=== PATIENT | male | born 1985 | race Caucasian/White ===

== ENCOUNTER 2016-12-24 22:42 | Emergency (ER) | payer OTHER ==
[2016-12-24 22:50] VITALS: BP 135/76; PULSE 71; RESP 16; TEMP 98.5
[2016-12-24] MEDS ORDERED: PROPARACAINE 0.5% OPHTH DROPS 15 ML BTL ONE (23:14)
--- NOTE | 2016-12-24 23:21 | ED ---
General Adult HPI - General Chief complaint: Eye Problems Stated complaint: Eye Problem Time Seen by Provider: 12/24/16 23:03 Source: patient, RN notes reviewed, old records reviewed Mode of arrival: ambulatory Limitations: no limitations - History of Present Illness Initial comments: This is a 4-year-old male to the ER for evaluation of eye pain and right eye pain. 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 Patient states he was unable simulate pain worse mucosas eye. Patient did try and evacuated I did have improvement will drive her to the emergency room. Patient denies any change in his vision. No other complaints - Related Data Home Medications Medication Instructions Recorded Confirmed No Known Home Medications [No 12/24/16 12/24/16 Known Home Medications] Allergies Allergy/AdvReac Type Severity Reaction Status Date / Time No Known Allergies Allergy Verified 12/24/16 22:59 Review of Systems ROS Statement: Those systems with pertinent positive or pertinent negative responses have been documented in the HPI. ROS Other: All systems not noted in ROS Statement are negative. Past Medical History Past Medical History: No Reported History History of Any Multi-Drug Resistant Organisms: None Reported Past Surgical History: No Surgical Hx Reported Past Psychological History: No Psychological Hx Reported Smoking Status: Current every day smoker Past Alcohol Use History: Occasional Past Drug Use History: Marijuana General Exam - General Exam Comments Initial Comments: Abrasion right eye under slit-lamp examination, no foreign body found in either looking under both eyelids or on surface of the eye Limitations: no limitations General appearance: alert, in no apparent distress Head exam: Present: atraumatic, normocephalic, normal inspection Eye exam: Present: normal appearance, PERRL, EOMI. Absent: scleral icterus, conjunctival injection, periorbital swelling ENT exam: Present: normal exam, mucous membranes moist Neck exam: Present: normal inspection. Absent: tenderness, meningismus, lymphadenopathy Respiratory exam: Present: normal lung sounds bilaterally. Absent: respiratory distress, wheezes, rales, rhonchi, stridor Cardiovascular Exam: Present: regular rate, normal rhythm, normal heart sounds. Absent: systolic murmur, diastolic murmur, rubs, gallop, clicks GI/Abdominal exam: Present: soft, normal bowel sounds. Absent: distended, tenderness, guarding, rebound, rigid Extremities exam: Present: normal inspection, full ROM, normal capillary refill. Absent: tenderness, pedal edema, joint swelling, calf tenderness Back exam: Present: normal inspection Neurological exam: Present: alert, oriented X3, CN II-XII intact Psychiatric exam: Present: normal affect, normal mood Skin exam: Present: warm, dry, intact, normal color. Absent: rash Course Vital Signs 12/24/16 22:47 Temperature 98.5 F Pulse Rate 71 Respiratory 16 Rate Blood Pressure 135/76 O2 Sat by Pulse 97 Oximetry - Reevaluation(s) Reevaluation #1: 12/24/16 23:31 Patient is pain relief with proparacaine Medical Decision Making - Medical Decision Making 31 male the ER with right eye foreign body which appears to resolve. Corneal abrasion. Patient given antibiotics here in the ER which he is refusing, patient states he has antibiotic at home or what actually on him in his coat and he will continue those on an outpatient basis Disposition Clinical Impression: Corneal abrasion Disposition: HOME SELF-CARE Condition: Good Instructions: Corneal Abrasion (ED) Referrals: None,Stated [Primary Care Provider] - 1-2 days Dilan Small MD [STAFF PHYSICIAN] - 1-2 days
== END 2016-12-24 23:37 | disposition home or self-care (01) ==
LOC: EC 22:42
DX: S05.01XA Injury of conjunctiva and corneal abrasion without foreign body, right eye, initial encounter (principal); F17.200 Nicotine dependence, unspecified, uncomplicated; X58.XXXA Exposure to other specified factors, initial encounter
CPT/HCPCS: 99283

== ENCOUNTER 2019-11-27 14:45 | Emergency (ER) | payer OTHER ==
[2019-11-27 14:52] VITALS: BP 127/86; PULSE 96; RESP 18; TEMP 98.7
[2019-11-27] MEDS ORDERED: LIDOCAINE/EPINEPHR/TETRACAINE 5 ML BOTTLE TOPICAL ONE (15:10)
--- NOTE | 2019-11-27 15:15 | ED ---
ENT HPI - General Chief complaint: ENT Stated complaint: Swollen Face/Nose Time Seen by Provider: 11/27/19 15:01 Source: patient Mode of arrival: ambulatory Limitations: no limitations - History of Present Illness Initial comments: Patient 34-year-old male presenting to emergency prompt a chief complaint of nose pain. Patient reports he has an infection on the left side of his nose. States he previously had this and believes it is a staph infection. Patient reports the swelling is better progress into the left side of the cheek. Patient states he is a smoker. He does report history of sinus infections. Denies any fevers, night sweats or chills. Denies any nausea vomiting diarrhea. - Related Data Home Medications Medication Instructions Recorded Confirmed Amoxicillin Unknown Dose 2 cap PO ONCE 11/27/19 11/27/19 Ibuprofen [Motrin Ib] 1,000 mg PO Q8H PRN 11/27/19 11/27/19 Previous Rx's Medication Instructions Recorded Doxycycline Monohydrate [Monodox] 100 mg PO Q12HR #14 cap 11/27/19 Allergies Allergy/AdvReac Type Severity Reaction Status Date / Time No Known Allergies Allergy Verified 11/27/19 15:14 Review of Systems ROS Statement: Those systems with pertinent positive or pertinent negative responses have been documented in the HPI. ROS Other: All systems not noted in ROS Statement are negative. Past Medical History Past Medical History: No Reported History History of Any Multi-Drug Resistant Organisms: None Reported Past Surgical History: No Surgical Hx Reported Past Psychological History: No Psychological Hx Reported Smoking Status: Current every day smoker Past Alcohol Use History: Occasional Past Drug Use History: Marijuana General Exam Limitations: no limitations General appearance: alert, in no apparent distress Head exam: Present: atraumatic, normocephalic, normal inspection Eye exam: Present: normal appearance, PERRL, EOMI Pupils: Present: normal accommodation ENT exam: Present: normal exam, normal oropharynx (No signs of periapical abscess in oral cavity.), mucous membranes moist, TM's normal bilaterally, normal external ear exam, other (There appears to be a small abscess in the intranasal cavity of the left nostril. Some overlying cellulitic skin changes and top of the nose.) Neck exam: Present: normal inspection, full ROM. Absent: tenderness Respiratory exam: Present: normal lung sounds bilaterally. Absent: respiratory distress, wheezes, rales Cardiovascular Exam: Present: regular rate, normal rhythm, normal heart sounds GI/Abdominal exam: Present: soft. Absent: distended Extremities exam: Present: normal inspection, full ROM, normal capillary refill. Absent: tenderness Back exam: Present: normal inspection, full ROM. Absent: tenderness, CVA tenderness (R), CVA tenderness (L) Neurological exam: Present: alert, oriented X3 Psychiatric exam: Present: normal affect, normal mood Skin exam: Present: warm, dry, intact, normal color Course Vital Signs 11/27/19 14:49 Temperature 98.7 F Pulse Rate 96 Respiratory 18 Rate Blood Pressure 127/86 O2 Sat by Pulse 100 Oximetry Medical Decision Making - Medical Decision Making Patient 34-year-old male presenting to the emergency department with chief complaint of an infection nose pain. On physical examination, patient does appear to have an intranasal abscess and is also causing some erythema top of the nose. He does have maxillary sinus tenderness. He is a smoker and he does feel at this could also be sinusitis. Incision and drainage was performed at this small abscess region. There could also be concurrent sinusitis. I also want to cover for MRSA. I'm going to start the patient on doxycycline. This will cover for both MRSA and sinusitis. I counseled the patient for smoking cessation for greater than 3 minutes. Strict return prescribed as were thoroughly discussed with patient is under standing agreeable. Case discussed with physician. Disposition Clinical Impression: Abscess Disposition: HOME SELF-CARE Condition: Stable Instructions (If sedation given, give patient instructions): Abscess (ED) Additional Instructions: Take prescribed medication as directed. Follow with the primary care physician. Return to emergency department if symptoms worsen. Is patient prescribed a controlled substance at d/c from ED?: No Referrals: None,Stated [Primary Care Provider] - 1-2 days Time of Disposition: 15:46
[2019-11-27] MEDS ORDERED: DOXYCYCLINE 100 MG CAP PO STA (15:46)
--- NOTE | 2019-11-28 12:20 | CDI ---
Dear Johnson Dominique PA-C> Please do addendum for Incision and drainage procedure note , required Thank you, Rachel Umaña, Brine Tank Separator Operator If you have any questions, please contact Manager Sterile Processing at [phone] [facility]
== END 2019-11-27 15:57 | disposition home or self-care (01) ==
LOC: EC 14:45
DX: J34.0 Abscess, furuncle and carbuncle of nose (principal); F17.200 Nicotine dependence, unspecified, uncomplicated; Z71.6 Tobacco abuse counseling
CPT/HCPCS: 10060; 99283; 99406

== ENCOUNTER 2020-09-20 11:37 | Emergency (ER) | payer OTHER ==
[2020-09-20 11:44] VITALS: BP 118/67; PULSE 100; RESP 17; TEMP 98.6
[2020-09-20] MEDS ORDERED: SULFAMETH-TMP DS STARTER PACK 2 TAB BTL PO STA (12:14)
[2020-09-20] MEDS ORDERED: KETOROLAC 15 MG/ML 1 ML VIAL IM STA (12:15)
--- NOTE | 2020-09-20 12:17 | ED ---
Skin/Abscess/FB HPI - General Chief complaint: Skin/Abscess/Foreign Body Stated complaint: Skin Issues/Thumb Swelling Time Seen by Provider: 09/20/20 11:50 Source: patient Mode of arrival: ambulatory Limitations: no limitations - History of Present Illness Initial comments: 35 year-old male patient presents to the emergency department for evaluation of left thumb swelling, left elbow "ingrown hair", and discoloration to the left lower leg. Patient is concerned he has "blood poisoning". He states he noticed the swelling to the areas a couple of days ago. Denies any known injury. Does admit to smoking "Ice", states it has been one week. Denies injecting any drugs. He denies any fever, chills, nausea, or vomiting. Denies any joint pain or swelling. Denies dizziness or weakness. Denies history of abscess. States he had "blood poisoning" as a child and is concerned he has this again. States last week he injured his right ramos. State he had a wound and swelling. Denies any significant pain to the area. He is ambulating without difficulty. - Related Data Home Medications Medication Instructions Recorded Confirmed Amoxicillin Unknown Dose 2 cap PO ONCE 11/27/19 11/27/19 Ibuprofen [Motrin Ib] 1,000 mg PO Q8H PRN 11/27/19 11/27/19 Previous Rx's Medication Instructions Recorded Doxycycline Monohydrate [Monodox] 100 mg PO Q12HR #14 cap 11/27/19 Ibuprofen [Motrin] 600 mg PO Q8HR PRN #30 tab 09/20/20 Sulfamethoxazole/Trimethoprim 1 each PO BID #20 tablet 09/20/20 [Bactrim DS 800-160 mg] Allergies Allergy/AdvReac Type Severity Reaction Status Date / Time shellfish derived [Shellfish] Allergy Anaphylaxis Verified 09/20/20 11:45 Review of Systems ROS Statement: Those systems with pertinent positive or pertinent negative responses have been documented in the HPI. ROS Other: All systems not noted in ROS Statement are negative. Past Medical History Past Medical History: No Reported History History of Any Multi-Drug Resistant Organisms: None Reported Past Surgical History: No Surgical Hx Reported Past Psychological History: Anxiety, Depression Smoking Status: Current every day smoker Past Alcohol Use History: Occasional Past Drug Use History: Marijuana General Exam Limitations: no limitations General appearance: alert, in no apparent distress, other (This is a well- developed, well-nourished adult male patient in no acute distress. Vital signs upon presentation are temperature 98.6F, pulse 100, respirations 17, blood pressure 118/67, pulse ox 97% on room air.) ENT exam: Present: normal exam, normal oropharynx, mucous membranes moist Respiratory exam: Present: normal lung sounds bilaterally. Absent: respiratory distress, wheezes, rales, rhonchi, stridor Cardiovascular Exam: Present: regular rate, normal rhythm, normal heart sounds. Absent: systolic murmur, diastolic murmur, rubs, gallop, clicks GI/Abdominal exam: Present: soft, normal bowel sounds. Absent: distended, tenderness, guarding, rebound, rigid Extremities exam: Present: full ROM, normal capillary refill, other (There is pustule noted to the right thumb, mild surrounding redness, and erythema. Full range of motion intact. Small pustule, mild surrounding erytema to the left elbow. Left lower leg ecchymosis. Skin is warm and dry. Pedal pulse 2+. ). Absent: tenderness, pedal edema, joint swelling, calf tenderness Neurological exam: Present: alert, oriented X3, CN II-XII intact Psychiatric exam: Present: normal affect, normal mood Skin exam: Present: warm, dry, intact, normal color. Absent: rash Course Vital Signs 09/20/20 11:40 Temperature 98.6 F Pulse Rate 100 Respiratory 17 Rate Blood Pressure 118/67 O2 Sat by Pulse 97 Oximetry Medical Decision Making - Medical Decision Making 35-year-old male patient presents to the emergency department today for evaluation of infection to his right thumb, left elbow, left lower leg. Physical examination did reveal small pustule to the right thumb and left elbow. Mild surrounding erythema. Full range of motion intact. Joints are not swollen or hot. The left lower leg exhibits some ecchymosis. He did have injury to the proximal ramos felt this to be the source of the ecchymosis. He will be started on Bactrim instructed to apply warm compresses to the pustules. Instructed to follow up with his primary care physician for recheck in 1-2 days. Return parameters were discussed in detail. He verbalizes understanding and agrees with this plan. My attending is Dr. Parsons. Disposition Clinical Impression: Swelling of right thumb, Traumatic ecchymosis of left lower leg Disposition: HOME SELF-CARE Condition: Good Instructions (If sedation given, give patient instructions): Contusion in Adults (ED), Abscess (ED) Additional Instructions: Apply warm compresses to the right thumb and the left elbow. Take medications as directed. Complete antibiotic prescription in full. Return immediately if he develop any fever or vomiting. Return for any other new, worsening, or concerning symptoms. Prescriptions: Sulfamethoxazole/Trimethoprim [Bactrim DS 800-160 mg] 1 each PO BID #20 tablet Ibuprofen [Motrin] 600 mg PO Q8HR PRN #30 tab PRN Reason: Pain Is patient prescribed a controlled substance at d/c from ED?: No Referrals: None,Stated [Primary Care Provider] - 1-2 days Time of Disposition: 12:16
== END 2020-09-20 12:30 | disposition home or self-care (01) ==
LOC: EC 11:37
DX: S80.12XA Contusion of left lower leg, initial encounter (principal); R22.32 Localized swelling, mass and lump, left upper limb; F41.9 Anxiety disorder, unspecified; F32.9 Major depressive disorder, single episode, unspecified; F17.200 Nicotine dependence, unspecified, uncomplicated; F12.90 Cannabis use, unspecified, uncomplicated; Z91.013 Allergy to seafood; X58.XXXA Exposure to other specified factors, initial encounter
CPT/HCPCS: 99283; 96372; J1885

== ENCOUNTER 2020-11-21 11:06 | Emergency (ER) | payer OTHER ==
[2020-11-21] MEDS ORDERED: predniSONE 20 MG TAB PO STA (12:52)
[2020-11-21] MEDS ORDERED: HYDROcodone/APAP 5-325MG 1 EACH TAB PO STA (12:52)
--- NOTE | 2020-11-21 12:53 | ED ---
Skin/Abscess/FB HPI - General Chief complaint: Skin/Abscess/Foreign Body Stated complaint: Allergic Reaction Time Seen by Provider: 11/21/20 11:58 Source: patient, RN notes reviewed Mode of arrival: ambulatory Limitations: no limitations - History of Present Illness Initial comments: This is a well-appearing 35-year-old white male that presents to the emergency room with 1 week of rash to bilateral forearms and abdomen. Patient was exposed to poison sumac and has been using [id number] calamine lotion with no relief. He states that he has been itching and very uncomfortable and now it is draining clear liquid. He denies any fevers but states that he just cannot get comfortable. MD complaint: rash -: days(s) (7) Tetanus Up to Date: yes Location: generalized, LUE, RUE Severity scale (1-10): 2 Quality: constant Consistency: constant Improves with: none Worsens with: none Context: other (Exposed to poison sumac) Associated symptoms: denies other symptoms Treatments Prior to Arrival: other (Calamine lotion) - Related Data Home Medications Medication Instructions Recorded Confirmed Amoxicillin Unknown Dose 2 cap PO ONCE 11/27/19 11/27/19 Ibuprofen [Motrin Ib] 1,000 mg PO Q8H PRN 11/27/19 11/27/19 Previous Rx's Medication Instructions Recorded Doxycycline Monohydrate [Monodox] 100 mg PO Q12HR #14 cap 11/27/19 Ibuprofen [Motrin] 600 mg PO Q8HR PRN #30 tab 09/20/20 Sulfamethoxazole/Trimethoprim 1 each PO BID #20 tablet 09/20/20 [Bactrim DS 800-160 mg] Cephalexin [Keflex] 500 mg PO Q6HR 5 Days #20 cap 11/21/20 predniSONE 50 mg PO DAILY #5 tab 11/21/20 Allergies Allergy/AdvReac Type Severity Reaction Status Date / Time shellfish derived [Shellfish] Allergy Anaphylaxis Verified 11/21/20 11:20 Review of Systems ROS Statement: Those systems with pertinent positive or pertinent negative responses have been documented in the HPI. ROS Other: All systems not noted in ROS Statement are negative. Past Medical History Past Medical History: No Reported History History of Any Multi-Drug Resistant Organisms: None Reported Past Surgical History: No Surgical Hx Reported Past Psychological History: Anxiety, Depression Smoking Status: Current every day smoker Past Alcohol Use History: Occasional Past Drug Use History: Marijuana General Exam Limitations: no limitations General appearance: alert, in no apparent distress Head exam: Present: atraumatic, normocephalic, normal inspection Eye exam: Present: normal appearance, PERRL, EOMI. Absent: scleral icterus, conjunctival injection, periorbital swelling ENT exam: Present: normal exam, normal oropharynx, mucous membranes moist Neck exam: Present: normal inspection, full ROM. Absent: tenderness, meningismus, lymphadenopathy Respiratory exam: Present: normal lung sounds bilaterally. Absent: respiratory distress, wheezes, rales, rhonchi, stridor Cardiovascular Exam: Present: regular rate, normal rhythm, normal heart sounds. Absent: systolic murmur, diastolic murmur, rubs, gallop, clicks GI/Abdominal exam: Present: soft, normal bowel sounds. Absent: distended, tenderness, guarding, rebound, rigid Extremities exam: Present: normal inspection, full ROM, normal capillary refill Neurological exam: Present: alert, oriented X3, normal gait Psychiatric exam: Present: normal affect, normal mood Skin exam: Present: warm, dry, rash, vesicles (Bilateral forearms and right lower abdomen). Absent: cyanosis, diaphoretic Course Vital Signs 11/21/20 11/21/20 11:20 13:35 Temperature 98.8 F 98.7 F Pulse Rate 95 79 Respiratory 16 19 Rate Blood Pressure 121/82 126/79 O2 Sat by Pulse 100 98 Oximetry Medical Decision Making - Medical Decision Making Patient was exposed to poison sumac on Thursday, 1 week ago, has been using [id number] calamine lotion with no relief. The rash now has clear yellow drainage and is tender to touch. Patient will be placed on prednisone and Keflex and directed to follow up with his primary care doctor in 1 week. Case discussed with Dr. Snow Disposition Clinical Impression: Poison sumac, Contact dermatitis Disposition: HOME SELF-CARE Condition: Good Additional Instructions: Keep wounds covered and take medication as prescribed. Return to the emergency room with any new or worsening symptoms including fever or signs of infection. Prescriptions: Cephalexin [Keflex] 500 mg PO Q6HR 5 Days #20 cap predniSONE 50 mg PO DAILY #5 tab Is patient prescribed a controlled substance at d/c from ED?: No Referrals: None,Stated [Primary Care Provider] - 1-2 days Time of Disposition: 12:55
[2020-11-21] MEDS ORDERED: DIPH,PERTUS(ACELL)TETVAC-LF 0.5 ML VIAL IM ONE (12:54)
[2020-11-21] MEDS ORDERED: ACET/COD 300 MG/30 MG STARTER PACK 6 TAB BTL PO STA (13:06)
[2020-11-21 13:36] VITALS: BP 126/79; PULSE 79; RESP 19; TEMP 98.7
== END 2020-11-21 13:36 | disposition home or self-care (01) ==
LOC: EC 11:06
DX: L23.7 Allergic contact dermatitis due to plants, except food (principal); F41.9 Anxiety disorder, unspecified; F32.9 Major depressive disorder, single episode, unspecified; F17.200 Nicotine dependence, unspecified, uncomplicated; F12.90 Cannabis use, unspecified, uncomplicated
CPT/HCPCS: 99282; 90471; 90715; J7512

== ENCOUNTER 2020-11-24 16:15 | Emergency (ER) | payer OTHER ==
[2020-11-24 16:31] VITALS: TEMP 97.6
--- NOTE | 2020-11-24 17:00 | ED ---
General Adult HPI - General Chief complaint: Skin/Abscess/Foreign Body Stated complaint: revisit-possible infection Time Seen by Provider: 11/24/20 16:58 Source: patient Mode of arrival: ambulatory Limitations: no limitations - History of Present Illness Initial comments: Patient presents to the ED stating that he was exposed to poison [place]ac about a week and a half ago, and he is concerned that his wounds may be infected. Patient states that he had exposures to his bilateral arms and left-sided his abdomen. Patient was seen in the ED for these symptoms 3 days ago, and he was started on a course of Keflex and prednisone by the ED provider that saw him at that time. Patient states that he has been taking the Keflex and prednisone that he was prescribed, but he states that his symptoms persist. Patient is complaining of having pain to his areas of exposure, and he also states that he has felt "hot and cold" at times. Patient also states that he has felt nauseated at times. Patient states that he has been taking all of his medications as prescribed. Patient denies fever or chills, headache, chest pain or pressure, dyspnea, cough or cold symptoms, palpitations, dizziness, abdominal pain, vomiting, decreased urine output or urinary symptoms, or any other symptoms or complaints. - Related Data Home Medications Medication Instructions Recorded Confirmed Amoxicillin Unknown Dose 2 cap PO ONCE 11/27/19 11/27/19 Ibuprofen [Motrin Ib] 1,000 mg PO Q8H PRN 11/27/19 11/27/19 Previous Rx's Medication Instructions Recorded Doxycycline Monohydrate [Monodox] 100 mg PO Q12HR #14 cap 11/27/19 Ibuprofen [Motrin] 600 mg PO Q8HR PRN #30 tab 09/20/20 Sulfamethoxazole/Trimethoprim 1 each PO BID #20 tablet 09/20/20 [Bactrim DS 800-160 mg] Cephalexin [Keflex] 500 mg PO Q6HR 5 Days #20 cap 11/21/20 predniSONE 50 mg PO DAILY #5 tab 11/21/20 Hydrocortisone Cream 1 applic TOPICAL TID #28 gm 11/24/20 [Hydrocortisone 2.5% Cream] Allergies Allergy/AdvReac Type Severity Reaction Status Date / Time shellfish derived [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 ROS Other: All systems not noted in ROS Statement are negative. Past Medical History Past Medical History: No Reported History History of Any Multi-Drug Resistant Organisms: None Reported Past Surgical History: No Surgical Hx Reported Past Psychological History: Anxiety, Depression Smoking Status: Current every day smoker Past Alcohol Use History: Occasional Past Drug Use History: Marijuana General Exam Limitations: no limitations General appearance: alert, in no apparent distress Head exam: Present: atraumatic, normocephalic Eye exam: Present: normal appearance, EOMI ENT exam: Present: mucous membranes moist Neck exam: Present: other (Trachea is in midline) Respiratory exam: Present: normal lung sounds bilaterally. Absent: respiratory distress, wheezes, rales, rhonchi, stridor Cardiovascular Exam: Present: regular rate, normal rhythm, normal heart sounds, other (Normal radial pulses bilaterally) GI/Abdominal exam: Present: soft. Absent: distended, tenderness, guarding Extremities exam: Present: full ROM. Absent: pedal edema Neurological exam: Present: alert, oriented X3. Absent: motor sensory deficit Psychiatric exam: Present: anxious Skin exam: Present: warm, dry, other (Dry, scaly, erythematous rashes are noted to the patient's right forearm/upper arm, left forearm and left lower quadrant abdominal wall consistent with contact dermatitis) Course Vital Signs 11/24/20 11/24/20 16:27 18:43 Temperature 97.6 F Pulse Rate 51 L 55 L Respiratory 20 16 Rate Blood Pressure 138/85 116/67 O2 Sat by Pulse 100 100 Oximetry - Reevaluation(s) Reevaluation #1: 11/24/20 17:59 Patient is now complaining of having severe generalized abdominal pain, which he now tells me he has been having for the past few days. Given this abdominal pain and the patient's leukocytosis, will obtain a CT abdomen/pelvis with IV contrast to further evaluate. 11/24/20 20:01 Patient is aware of his test results, and he feels comfortable being discharged home at this time. Patient was counseled about contact dermatitis and abdominal pain. Patient was instructed to complete the courses of prednisone and Keflex that he was prescribed in the ED 3 days ago. Patient was also provided with a prescription for topical hydrocortisone cream. Patient was clearly explained return and follow-up instructions, and he feels comfortable with this plan. Patient was instructed to follow up closely with his primary care provider. Medical Decision Making - Medical Decision Making I suspect that the patient's skin findings are likely secondary to contact dermatitis from poison [place] exposure. I do not think that the patient's rash is from an infectious etiology, nor do I think that his rash has become infected, but still the patient was instructed to complete the course of Keflex that he was prescribed in the ED 3 days ago. I am also uncertain of the et iology of the patient's abdominal pain, but he has a soft and nonsurgical abdominal exam, and his CT abdomen/pelvis with IV contrast is negative. I do not suspect an emergent medical or surgical condition at this time. Patient was also provided with a prescription for topical hydrocortisone cream to apply to his areas of contact dermatitis. Will discharge patient home at this time. - Lab Data Result diagrams: 11/24/20 17:38 11/24/20 17:38 Lab Results 11/24/20 11/24/20 11/24/20 Range/Units 17:38 17:38 17:38 WBC 17.5 H (3.8-10.6) k/uL RBC 5.42 (4.30-5.90) m/uL Hgb 16.3 (13.0-17.5) gm/dL Hct 49.9 (39.0-53.0) % MCV 92.1 (80.0-100.0) fL MCH 30.1 (25.0-35.0) pg MCHC 32.7 (31.0-37.0) g/dL RDW 12.6 (11.5-15.5) % Plt Count 359 (150-450) k/uL MPV 6.6 Neutrophils % 65 % Lymphocytes % 24 % Monocytes % 6 % Eosinophils % 4 % Basophils % 0 % Neutrophils # 11.3 H (1.3-7.7) k/uL Lymphocytes # 4.2 (1.0-4.8) k/uL Monocytes # 1.1 H (0-1.0) k/uL Eosinophils # 0.6 (0-0.7) k/uL Basophils # 0.1 (0-0.2) k/uL Sodium 137 (137-145) mmol/L Potassium 3.2 L (3.5-5.1) mmol/L Chloride 102 (98-107) mmol/L Carbon Dioxide 26 (22-30) mmol/L Anion Gap 9 mmol/L BUN 15 (9-20) mg/dL Creatinine 0.72 (0.66-1.25) mg/dL Est GFR (CKD-EPI)AfAm >90 (>60 ml/min/1.73 sqM) Est GFR (CKD-EPI)NonAf >90 (>60 ml/min/1.73 sqM) Glucose 86 (74-99) mg/dL Calcium 9.1 (8.4-10.2) mg/dL Total Bilirubin 0.3 (0.2-1.3) mg/dL AST 28 (17-59) U/L ALT 26 (4-49) U/L Alkaline Phosphatase 44 (38-126) U/L Total Protein 6.6 (6.3-8.2) g/dL Albumin 4.1 (3.5-5.0) g/dL Lipase 153 (23-300) U/L - Radiology Data Radiology results: report reviewed (CT abdomen/pelvis with IV contrast: Negative CT scan abdomen and pelvis. Normal appendix.) Disposition Clinical Impression: Contact dermatitis due to poison [place], Abdominal pain Disposition: HOME SELF-CARE Condition: Stable Instructions (If sedation given, give patient instructions): Contact Dermatitis (ED), Abdominal Pain (ED) Additional Instructions: Return to the ER immediately should you develop new or worsening pain, a fever, significant vomiting, feeling dizzy or faint, shortness of breath, or new or worsening symptoms. Follow up closely with your primary care provider. Prescriptions: Hydrocortisone Cream [Hydrocortisone 2.5% Cream] 1 applic TOPICAL TID #28 gm Is patient prescribed a controlled substance at d/c from ED?: No Referrals: None,Stated [Primary Care Provider] - 1-2 days Antoinette Julian MD [REFERRING] - 1-2 days Time of Disposition: 20:04
[2020-11-24] MEDS ORDERED: ONDANSETRON ODT 4 MG TAB PO STA (17:19)
[2020-11-24 17:42] LABS: Basophils # (A) 0.1 k/uL (0-0.2); Basophils % (A) 0 %; Eosinophils # (A) 0.6 k/uL (0-0.7); Eosinophils % (A) 4 %; HCT 49.9 % (39.0-53.0); HGB 16.3 gm/dL (13.0-17.5); Lymphocytes # (A) 4.2 k/uL (1.0-4.8); Lymphocytes % (A) 24 %; MCH 30.1 pg (25.0-35.0); MCHC 32.7 g/dL (31.0-37.0); MCV 92.1 fL (80.0-100.0); Mean Platelet Volume 6.6; Monocytes # (A) 1.1 k/uL (0-1.0); Monocytes % (A) 6 %; Neutrophils # (A) 11.3 k/uL (1.3-7.7); Neutrophils % (A) 65 %; Platelet Count 359 k/uL (150-450); RBC 5.42 m/uL (4.30-5.90); RDW 12.6 % (11.5-15.5); WBC 17.5 k/uL (3.8-10.6)
[2020-11-24 17:52] LABS: ALT 26 U/L (4-49); AST 28 U/L (17-59); African American GFR (CKD) >90 (>60 ml/min/1.73 sqM); Albumin 4.1 g/dL (3.5-5.0); Alkaline Phosphatase 44 U/L (38-126); Anion Gap 9 mmol/L; Blood Urea Nitrogen 15 mg/dL (9-20); Calcium 9.1 mg/dL (8.4-10.2); Carbon Dioxide 26 mmol/L (22-30); Chloride 102 mmol/L (98-107); Glucose 86 mg/dL (74-99); Non-African American GFR(CKD) >90 (>60 ml/min/1.73 sqM); Potassium 3.2 mmol/L (3.5-5.1); Sodium 137 mmol/L (137-145); Total Bilirubin 0.3 mg/dL (0.2-1.3); Total Protein 6.6 g/dL (6.3-8.2)
[2020-11-24] MEDS ORDERED: SODIUM CHLORIDE 0.9% 1,000 ML IV ONE (18:02)
[2020-11-24 18:43] VITALS: BP 116/67; PULSE 55; RESP 16
--- NOTE | 2020-11-24 18:49 | CT ---
EXAMINATION TYPE: CT abdomen pelvis w con DATE OF EXAM: 11/24/2020 COMPARISON: None HISTORY: Abdominal pain CT DLP: mGycm Automated exposure control for dose reduction was used. CONTRAST: The IV contrast was Isovue 100 mL. FINDINGS: Heart has normal size. Lung bases are clear. There is no pleural effusion. There is no pericardial ef fusion. Liver spleen stomach pancreas gallbladder appear intact. Bile ducts are nondilated. There is no adrenal mass. Kidneys show satisfactory contrast opacification. There is no hydronephrosis. There is no retroperitoneal adenopathy. Ureters are not dilated. The bladder distends smoothly. There is no inguinal hernia. There is no free fluid in the pelvis. The re is no evidence of a pelvic mass. There is no mesenteric edema. There is no ascites or free air. There is no sign of a bowel obstructio n. Appendix is posterior and lateral and appears normal. Delayed images show normal renal excretion. The lumbar vertebra have normal alignment. Disc spaces are normal. Posterior elements are intact. Bon y pelvis is intact. Hip joints are intact. IMPRESSION: Negative CT scan abdomen and pelvis. Normal appendix.
[2020-11-24] MEDS ORDERED: LORazepam 2 MG/ML INJ IV STA (18:57)
[2020-11-24] MEDS ORDERED: MAG HYDROX/AL HYDROX/SIMETH 30 ML CUP PO STA (19:55)
== END 2020-11-24 20:36 | disposition home or self-care (01) ==
LOC: EC 16:15
DX: L23.7 Allergic contact dermatitis due to plants, except food (principal); R10.84 Generalized abdominal pain; F32.9 Major depressive disorder, single episode, unspecified; F41.9 Anxiety disorder, unspecified; F17.200 Nicotine dependence, unspecified, uncomplicated; F12.90 Cannabis use, unspecified, uncomplicated; Z79.1 Long term (current) use of non-steroidal anti-inflammatories (NSAID); Z79.52 Long term (current) use of systemic steroids
CPT/HCPCS: 36415; 80053; 83690; 85025; 74177; 99284; 96374; 96361 ×2; J2060; Q9967